=== PATIENT | female | born 1950 | race Caucasian/White ===

== ENCOUNTER 2016-12-06 10:11 | Emergency (ER) | payer MEDICARE ==
[~2016-12-06] VITALS: Ht 165.1 cm; Wt 101.1 kg
[2016-12-06] MEDS ORDERED: HYDROmorphone 1 MG/ML, 1ML ONE (10:51)
[2016-12-06] MEDS ORDERED: ONDANSETRON ODT 4 MG ONE ×2 (10:52→12:28)
[2016-12-06] MEDS ORDERED: HYDROmorphone 1 MG/ML, 1ML IM ONE (11:00)
[2016-12-06] MEDS ORDERED: ONDANSETRON ODT 4 MG PO ONE ×2 (11:00→13:00)
[2016-12-06 11:54] VITALS: BP 136/88
== END 2016-12-06 12:23 | disposition home or self-care (01) ==
LOC: ED 11:16
DX: M54.16 Radiculopathy, lumbar region (principal); M79.671 Pain in right foot; M25.551 Pain in right hip; M79.651 Pain in right thigh; M25.561 Pain in right knee; M25.571 Pain in right ankle and joints of right foot; I10 Essential (primary) hypertension; E03.9 Hypothyroidism, unspecified
CPT/HCPCS: 72148; 96372; 99284; J1170; Q0162

== ENCOUNTER → 2017-01-09 | Outpatient (CLI) | payer MEDICARE ==
[~2017-01-09] MED LIST: LEVO100T PO; OLME1TAB30 PO; VILA20TA PO
[2017-01-09 15:26] LABS: ASPARTATE AMINO TRANSFERASE 18 U/L (15-37); BLOOD UREA NITROGEN 20 mg/dL (7-18)
[2017-01-09 16:23] LABS: HEPATITIS C VIRUS ANTIBODY Reactive (Nonreactive)
[2017-01-09 16:46] LABS: HIV 1&2 ANTIBODY SCREEN Nonreactive (Nonreactive); HIV-1 p24 ANTIGEN Nonreactive (Nonreactive)
== END | disposition home or self-care (01) ==
LOC: STAR 14:08
PROVIDERS: ATTEND Orthopaedic Surgery Orthopaedic Surgery of the Spine
DX: Z01.811 Encounter for preprocedural respiratory examination (principal); M43.16 Spondylolisthesis, lumbar region
CPT/HCPCS: 36415; 71020; 80053; 80074; 81001; 85025; 85610; 85651; 85730; 86703; 87086; 87521; 87899; 93005; G0435